=== PATIENT | female | born 1990 | race Caucasian/White ===

== ENCOUNTER 2017-10-01 15:51 | Inpatient (IN) | payer MEDICAID ==
[~2017-10-01] VITALS: Ht 157.5 cm; Wt 77.1 kg
[2017-10-01 16:30] LABS: Basophils # (auto) 0 uL; Basophils % (auto) 0.2 % (0.0-2.0); Eosinophils # (auto) 0 uL; Hematocrit 40.7 % (36.0-46.0); Hemoglobin 13.8 g/dL (12.2-16.2); Lymphocytes # (auto) 1.5 uL; Lymphocytes % (auto) 13.4 % (10.0-50.0); Mean Corpuscular Hemoglobin 31.7 pg (28.0-32.0); Mean Corpuscular Hgb Conc. 33.9 g/dL (32.0-36.0); Mean Corpuscular Volume 93.5 fL (80.0-100.0); Monocytes # (auto) 0.4 uL; Monocytes % (auto) 3.6 % (0.0-12.0); Neutrophils # (auto) 9.4 uL; Neutrophils % (auto) 82.8 % (37.0-80.0); Nucleated Red Blood Cells % 0.1 %; Platelet Count (auto) 314 10^3/uL (140-450); Red Blood Cells 4.36 10^6/uL (4.0-5.20); Red Cell Distribution Width 13.3 % (11.8-14.3); White Blood Cell 11.4 10^3/uL (4.4-10.8)
[2017-10-01 16:46] LABS: Albumin 3.8 g/dL (3.4-5.0); BUN/Creatinine Ratio 12.5; Calcium 8.6 mg/dL (8.5-10.1); Potassium 3.1 mmol/L (3.5-5.1)
[2017-10-01 16:49] LABS: Bilirubin, Total 0.5 mg/dL (0.2-1.0); Total Protein 8.3 g/dL (6.4-8.2)
[2017-10-01] MEDS ORDERED: SODIUM CHLORIDE 0.9% 1,000 ML IV ONE (19:45)
[2017-10-01] MEDS ORDERED: ONDANSETRON HCL 4 MG/2 ML VIAL ONE (19:53)
[2017-10-01] MEDS ORDERED: ONDANSETRON HCL 4 MG/2 ML VIAL IV ONE (20:00)
[2017-10-01] MEDS ORDERED: SODIUM CHLORIDE 0.9% 1,000 ML IVB ONE (20:07)
[2017-10-01 21:05] LABS: INR 1.01 (0.9-1.15); Partial Thromboplastin Time 28.1 sec (23.78-33.04); Prothrombin Time 10.8 sec (9.27-12.13)
[2017-10-01 21:08] LABS: Magnesium 1.9 mg/dL (1.6-2.6)
[2017-10-01] MEDS ORDERED: PROMETHAZINE HCL 25 MG/ML 1ML IV ONE (21:15)
[2017-10-01] MEDS ORDERED: PANTOPRAZOLE 40 MG/10 ML VIAL IV ONE (21:15)
[2017-10-01] MEDS: POTASSIUM CHL 20MEQ/100ML 100 ML IV SCH (22:08)
[2017-10-02] MEDS: POTASSIUM CHL 20MEQ/100ML 100 ML IV SCH (00:08)
[2017-10-02] MEDS ORDERED: ONDANSETRON ODT 4 MG TAB PO ONE (00:30)
[2017-10-02 02:09] VITALS: BP 154/75
== END 2017-10-02 02:10 | disposition home or self-care (01) | DRG 249 ==
LOC: ER 15:51 → OVERFLOW 15:52 → OBSVTOIN 15:52 → OVERFLOW 10-02 02:10 → ER 10-02 02:15
PROVIDERS: ADMIT Family Medicine; ATTEND Internal Medicine
DX: E86.0 Dehydration (principal); K52.9 Noninfective gastroenteritis and colitis, unspecified; N20.0 Calculus of kidney; E87.6 Hypokalemia; K44.9 Diaphragmatic hernia without obstruction or gangrene; Z82.49 Family history of ischemic heart disease and other diseases of the circulatory system
CPT/HCPCS: 36415; 71045; 74176; 80053; 82150; 83690; 83735; 84702; 85025; 85610; 85730; 93005; C9113; G0378; J2405; J3480; Q0162

== ENCOUNTER 2017-10-05 07:58 | Inpatient (IN) | payer MEDICAID ==
[~2017-10-05] VITALS: Ht 157.5 cm; Wt 78.7 kg
[2017-10-05] MEDS ORDERED: KETOROLAC TROMETH 30 MG/ML 1ML VIAL ONE (08:39)
[2017-10-05] MEDS ORDERED: SODIUM CHLORIDE 0.9% 1,000 ML IV ONE ×3 (08:44→08:45)
[2017-10-05 08:45] LABS: Urine Bacteria NONE SEEN /hpf (None Seen); Urine Blood Negative /uL (Negative); Urine Mucus FEW (None Seen); Urine Specific Gravity 1.026 (1.001-1.035); Urine WBC 10 /hpf (0 - 5)
[2017-10-05] MEDS ORDERED: KETOROLAC TROMETH 30 MG/ML 1ML VIAL IV ONE (08:45)
[2017-10-05 08:46] LABS: Basophils # (auto) 0 uL; Basophils % (auto) 0.4 % (0.0-2.0); Eosinophils # (auto) 0 uL; Eosinophils % (auto) 0.3 % (0.0-7.0); Hematocrit 45.3 % (36.0-46.0); Hemoglobin 15.6 g/dL (12.2-16.2); Lymphocytes # (auto) 2.7 uL; Mean Corpuscular Hemoglobin 31.4 pg (28.0-32.0); Mean Corpuscular Hgb Conc. 34.4 g/dL (32.0-36.0); Mean Corpuscular Volume 91.4 fL (80.0-100.0); Monocytes % (auto) 7.4 % (0.0-12.0); Neutrophils # (auto) 9.7 uL; Neutrophils % (auto) 71.9 % (37.0-80.0); Nucleated Red Blood Cells % 0.1 %; Platelet Count (auto) 344 10^3/uL (140-450); Red Blood Cells 4.96 10^6/uL (4.0-5.20); Red Cell Distribution Width 13.6 % (11.8-14.3); White Blood Cell 13.4 10^3/uL (4.4-10.8)
[2017-10-05] MEDS ORDERED: ONDANSETRON HCL 4 MG/2 ML VIAL ONE ×2 (09:36→12:04)
[2017-10-05 09:41] LABS: Calcium 8.8 mg/dL (8.5-10.1); Magnesium 2.2 mg/dL (1.6-2.6)
[2017-10-05 09:43] LABS: Bilirubin, Total 0.7 mg/dL (0.2-1.0); Potassium 2.9 mmol/L (3.5-5.1); Total Protein 8.4 g/dL (6.4-8.2)
[2017-10-05] MEDS ORDERED: ONDANSETRON HCL 4 MG/2 ML VIAL IV ONE (09:45)
[2017-10-05] MEDS ORDERED: POTASSIUM CHL 20MEQ/100ML 100 ML IV ONE (09:47)
[2017-10-05] MEDS: POTASSIUM CHL 20MEQ/100ML 100 ML IV SCH ×2 (10:13→13:59)
[2017-10-05] MEDS ORDERED: SODIUM CHLORIDE 0.9% 1,000 ML IV SCH (11:53)
[2017-10-05] MEDS ORDERED: LACTULOSE 20Gm/30ML SOLN PO PRN (12:00)
[2017-10-05] MEDS ORDERED: MORPHINE SULFATE 8mg/ml INJ SDV IV PRN (12:00)
[2017-10-05] MEDS ORDERED: ACETAMINOPHEN 325 MG TAB PO PRN (12:00)
[2017-10-05] MEDS ORDERED: DOCUSATE SOD 100 MG CAP PO PRN (12:00)
[2017-10-05] MEDS ORDERED: LACTULOSE 20Gm/30ML SOLN PO ONE (12:00)
[2017-10-05] MEDS ORDERED: HYDROcodone-ACET 5/325MG TAB PO PRN ×2 (12:00→15:45)
[2017-10-05] MEDS ORDERED: ONDANSETRON HCL 4 MG/2 ML VIAL IV PRN (12:00)
[2017-10-05] MEDS ORDERED: TEMAZEPAM 15 MG CAP PO PRN (12:00)
[2017-10-05] MEDS ORDERED: MULTIPLE VITAMIN TAB PO ONE (12:15)
[2017-10-05] MEDS ORDERED: GASTROGRAFIN 120 ML SOL ONE (13:16)
[2017-10-05 14:59] LABS: BUN/Creatinine Ratio 10.8; Potassium 3.2 mmol/L (3.5-5.1)
[2017-10-05] MEDS ORDERED: PROMETHAZINE HCL 25 MG/ML 1ML IV PRN (15:45)
[2017-10-05] MEDS ORDERED: KETOROLAC TROMETH 30 MG/ML 1ML VIAL IV PRN (15:45)
[2017-10-05] MEDS ORDERED: ALPR0.25 PO (15:52)
[2017-10-05 17:00] VITALS: BP 154/75
[2017-10-05] MEDS: ALPRAZolam 0.25 MG TAB PO SCH (21:18)
[2017-10-05] MEDS: SODIUM CHLORIDE 0.9% 1,000 ML IV SCH (21:18)
[2017-10-05] MEDS: FAMOTIDINE 20 MG TAB PO SCH (21:18)
[2017-10-05 22:00] VITALS: BP 117/70
[2017-10-06 05:00] VITALS: BP 119/56
[2017-10-06] MEDS: SODIUM CHLORIDE 0.9% 1,000 ML IV SCH ×3 (06:21→16:30)
[2017-10-06 06:55] LABS: Basophils # (auto) 0 uL; Basophils % (auto) 0.3 % (0.0-2.0); Eosinophils # (auto) 0.1 uL; Eosinophils % (auto) 0.7 % (0.0-7.0); Hematocrit 38.5 % (36.0-46.0); Hemoglobin 13.3 g/dL (12.2-16.2); Lymphocytes # (auto) 3.6 uL; Lymphocytes % (auto) 35.5 % (10.0-50.0); Mean Corpuscular Hemoglobin 32.2 pg (28.0-32.0); Mean Corpuscular Hgb Conc. 34.6 g/dL (32.0-36.0); Mean Corpuscular Volume 93.3 fL (80.0-100.0); Monocytes # (auto) 0.8 uL; Monocytes % (auto) 7.4 % (0.0-12.0); Neutrophils # (auto) 5.8 uL; Neutrophils % (auto) 56.1 % (37.0-80.0); Nucleated Red Blood Cells % 0.2 %; Platelet Count (auto) 285 10^3/uL (140-450); Red Blood Cells 4.13 10^6/uL (4.0-5.20); Red Cell Distribution Width 13.4 % (11.8-14.3); White Blood Cell 10.3 10^3/uL (4.4-10.8)
[2017-10-06 06:56] LABS: Potassium 3.5 mmol/L (3.5-5.1)
[2017-10-06 07:03] LABS: Albumin 3.3 g/dL (3.4-5.0); BUN/Creatinine Ratio 8.8; Calcium 8.2 mg/dL (8.5-10.1)
[2017-10-06 07:15] LABS: Bilirubin, Total 0.7 mg/dL (0.2-1.0); Total Protein 6.7 g/dL (6.4-8.2)
[2017-10-06 09:00] VITALS: BP 99/56
[2017-10-06] MEDS: MULTIPLE VITAMIN TAB PO SCH (09:54)
[2017-10-06] MEDS: FAMOTIDINE 20 MG TAB PO SCH ×2 (09:54→21:18)
[2017-10-06] MEDS: ALPRAZolam 0.25 MG TAB PO SCH ×2 (09:54→21:18)
[2017-10-06] MEDS ORDERED: POTASSIUM CHL 10% (20 MEQ/15ML) 15ml ORAL SOLN PO ONE (13:00)
[2017-10-06 13:55] VITALS: BP 104/67
[2017-10-06] MEDS ORDERED: GOLYTELY 4L KIT PO ONE (15:15)
[2017-10-06 17:00] VITALS: BP 110/64
[2017-10-06 22:00] VITALS: BP 117/63
[2017-10-07 05:00] VITALS: BP 98/53
[2017-10-07] MEDS ORDERED: GOLYTELY 4L KIT PO ONE (06:00)
[2017-10-07 08:00] VITALS: BP 109/46
[2017-10-07 08:21] LABS: Basophils # (auto) 0 uL; Basophils % (auto) 0.4 % (0.0-2.0); Eosinophils # (auto) 0.1 uL; Eosinophils % (auto) 1.5 % (0.0-7.0); Hematocrit 41.6 % (36.0-46.0); Hemoglobin 13.9 g/dL (12.2-16.2); Lymphocytes # (auto) 3.2 uL; Lymphocytes % (auto) 32.8 % (10.0-50.0); Mean Corpuscular Hemoglobin 31.2 pg (28.0-32.0); Mean Corpuscular Hgb Conc. 33.3 g/dL (32.0-36.0); Mean Corpuscular Volume 93.7 fL (80.0-100.0); Monocytes # (auto) 0.7 uL; Monocytes % (auto) 6.8 % (0.0-12.0); Neutrophils # (auto) 5.7 uL; Neutrophils % (auto) 58.5 % (37.0-80.0); Nucleated Red Blood Cells % 0.1 %; Platelet Count (auto) 309 10^3/uL (140-450); Red Blood Cells 4.44 10^6/uL (4.0-5.20); Red Cell Distribution Width 13.2 % (11.8-14.3); White Blood Cell 9.8 10^3/uL (4.4-10.8)
[2017-10-07 08:33] LABS: INR 1.04 (0.9-1.15); Prothrombin Time 11.1 sec (9.27-12.13)
[2017-10-07 08:39] LABS: BUN/Creatinine Ratio 7.8; Calcium 8.8 mg/dL (8.5-10.1); Magnesium 2.6 mg/dL (1.6-2.6); Potassium 3.9 mmol/L (3.5-5.1)
[2017-10-07] MEDS ORDERED: SODIUM CHLORIDE LOCK 10 ML ONE (09:31)
[2017-10-07] MEDS ORDERED: diphenhdrAMINE HCL 50 MG/1 ML VL ONE (09:32)
[2017-10-07] MEDS: MULTIPLE VITAMIN TAB PO SCH (10:00)
[2017-10-07] MEDS: ALPRAZolam 0.25 MG TAB PO SCH (10:00)
[2017-10-07] MEDS: FAMOTIDINE 20 MG TAB PO SCH (10:00)
[2017-10-07] MEDS: MIDAZOLAM HCL 5 MG/ML-1ML VIAL ONE ×3 (12:58→13:06)
[2017-10-07 13:00] VITALS: BP 125/57
[2017-10-07] MEDS: fentaNYL CITRATE 100 MCG/2 ML VL ONE ×2 (13:01→13:06)
[2017-10-07] MEDS ORDERED: MIDAZOLAM HCL 5 MG/ML-1ML VIAL ONE (13:05)
[2017-10-07] MEDS ORDERED: fentaNYL CITRATE 100 MCG/2 ML VL ONE (13:05)
[2017-10-07 14:14] VITALS: BP 109/46
== END 2017-10-07 15:00 | disposition home or self-care (01) | DRG 422 ==
LOC: ER 07:58 → OVERFLOW 07:59 → WEST WING 14:05
PROVIDERS: ADMIT Internal Medicine; ATTEND Internal Medicine
PROC: 0DBE8ZX Excision of Large Intestine, Via Natural or Artificial Opening Endoscopic, Diagnostic (ICD-10-PCS; principal; 2017-10-07 12:52)
DX: E87.6 Hypokalemia (principal); E86.0 Dehydration; K92.0 Hematemesis; E87.2 Acidosis; E44.1 Mild protein-calorie malnutrition; K52.3 Indeterminate colitis; E87.1 Hypo-osmolality and hyponatremia; N18.2 Chronic kidney disease, stage 2 (mild); F12.90 Cannabis use, unspecified, uncomplicated; K44.9 Diaphragmatic hernia without obstruction or gangrene; K59.00 Constipation, unspecified; K64.8 Other hemorrhoids; N20.0 Calculus of kidney; Z82.49 Family history of ischemic heart disease and other diseases of the circulatory system; Z68.31 Body mass index [BMI] 31.0-31.9, adult
CPT/HCPCS: 36415; 74176; 80048; 80053; 81001; 81025; 82784; 83516; 83735; 85025; 85610; 86255; 86850; 86900; 86901; 87081; 87493; 96361; 96374; 96375; J1885; J2250; J2405; J3480

== ENCOUNTER 2020-02-03 08:45 | Emergency (ER) | payer MEDICAID ==
[~2020-02-03] VITALS: Ht 154.9 cm; Wt 72.6 kg
[~2020-02-03 08:45] MED LIST: ALPR0.25 PO
[2020-02-03] MEDS ORDERED: ONDANSETRON ODT 4 MG TAB PO ONE ×2 (08:56→09:00)
[2020-02-03 09:20] LABS: Basophils # (auto) 0 10 ^3/uL (0-0.2); Basophils % (auto) 0.3 % (0.0-2.0); Eosinophils # (auto) 0 10 ^3/uL (0-0.8); Hematocrit 41.6 % (36.0-46.0); Hemoglobin 14.1 g/dL (12.2-16.2); Lymphocytes # (auto) 1.1 10 ^3/uL (0.4-5.4); Lymphocytes % (auto) 10.1 % (10.0-50.0); Mean Corpuscular Hemoglobin 31.4 pg (28.0-32.0); Mean Corpuscular Hgb Conc. 33.8 g/dL (32.0-36.0); Mean Corpuscular Volume 92.9 fL (80.0-100.0); Monocytes # (auto) 0.4 10 ^3/uL (0-1.3); Monocytes % (auto) 3.5 % (0.0-12.0); Neutrophils # (auto) 9.6 10 ^3/uL (1.6-8.6); Neutrophils % (auto) 86.1 % (37.0-80.0); Nucleated Red Blood Cells % 0.1 %; Platelet Count (auto) 339 10^3/uL (140-450); Red Blood Cells 4.48 10^6/uL (4.0-5.20); White Blood Cell 11.1 10^3/uL (4.4-10.8)
[2020-02-03 09:40] LABS: Albumin 4.3 g/dL (3.4-5.0); BUN/Creatinine Ratio 14.4; Calcium 9.3 mg/dL (8.5-10.1)
[2020-02-03 09:43] LABS: Bilirubin, Total 0.8 mg/dL (0.2-1.0); Total Protein 8.3 g/dL (6.4-8.2)
[2020-02-03 09:47] LABS: Potassium 2.6 mmol/L (3.5-5.1)
[2020-02-03] MEDS ORDERED: POTASSIUM EFFERVESENT TAB 25 MEQ PO ONE (10:00)
[2020-02-03] MEDS ORDERED: ONDANSETRON HCL 4 MG/2 ML VIAL IM ONE (10:00)
[2020-02-03] MEDS ORDERED: POTASSIUM CHL 20 Meq TABLET PO ONE (10:30)
[2020-02-03] MEDS ORDERED: SODIUM CHLORIDE 0.9% 1,000 ML IV ONE (10:30)
[2020-02-03 11:50] VITALS: BP 102/59
== END 2020-02-03 11:53 | disposition home or self-care (01) ==
LOC: ER 08:45
DX: E86.0 Dehydration (principal); E87.6 Hypokalemia; F12.10 Cannabis abuse, uncomplicated
CPT/HCPCS: 36415; 80053; 85025; 96360; 96372; 99283; J2405; J7030; Q0162